=== PATIENT | female | born 1980 | race Caucasian/White ===

== ENCOUNTER 2017-02-07 13:54 | Emergency (ER) | payer OTHER ==
[~2017-02-07] VITALS: Ht 165.1 cm; Wt 75.1 kg
[~2017-02-07 13:54] MED LIST: ZOFRAN ODT4 MG PO
[2017-02-07 14:06] VITALS: BP 115/64; PULSE 77; TEMP 98.1
[2017-02-07] MEDS ORDERED: FLEXERIL5 MG PO (14:09)
[2017-02-07] MEDS ORDERED: LAMICTAL 25MG T25 MG PO (14:10)
[2017-02-07] MEDS ORDERED: AMOXICILLIN 50500 MG PO (15:34)
[2017-02-07] MEDS ORDERED: CORTISPORIN OTI10 ML OT (15:34)
== END 2017-02-07 15:55 | disposition home or self-care (01) ==
LOC: COL.ER 13:54
DX: H92.01 Otalgia, right ear (principal); R59.0 Localized enlarged lymph nodes

== ENCOUNTER 2017-07-11 10:39 | Emergency (ER) | payer OTHER ==
[~2017-07-11] VITALS: Ht 160 cm; Wt 76.4 kg
[~2017-07-11 10:39] MED LIST changes: +AMOXICILLIN 50500 MG PO; +CORTISPORIN OTI10 ML OT; +FLEXERIL5 MG PO; +LAMICTAL 25MG T25 MG PO
[2017-07-11 10:44] VITALS: BP 138/63
[2017-07-11 11:54] LABS: COLLECTION METHOD CLEAN CATCH
[2017-07-11 12:00] LABS: MUCOUS Present /lpf; PH 6 (5-8); URINE APPEARANCE Clear; URINE BACTERIA Rare /hpf; URINE BILIRUBIN Negative (NEGATIVE); URINE BLOOD Negative (NEGATIVE); URINE COLOR Amber; URINE GLUCOSE Negative (NEGATIVE); URINE KETONE Negative (NEGATIVE); URINE LEUKOCYTE ESTERASE Negative (NEGATIVE); URINE NITRATE Negative (NEGATIVE); URINE PROTEIN(semi-quant) Negative (NEGATIVE); URINE RBC 0-2 /hpf; URINE UROBILINOGEN Negative (NEGATIVE)
[2017-07-11 14:33] VITALS: PULSE 63; TEMP 98.5
== END 2017-07-11 14:18 | disposition home or self-care (01) ==
LOC: COL.ER 10:39
PROVIDERS: Nurse Practitioner
DX: O26.892 Other specified pregnancy related conditions, second trimester (principal); R10.2 Pelvic and perineal pain; Z3A.19 19 weeks gestation of pregnancy; Z98.890 Other specified postprocedural states; Z90.89 Acquired absence of other organs

== ENCOUNTER 2017-11-17 23:18 | Outpatient (CLI) | payer OTHER ==
[2017-11-17 23:45] VITALS: BP 116/65; PULSE 72; TEMP 97.8
[2017-11-18 03:20] VITALS: BP 116/65; PULSE 72; TEMP 97.8
== END 2017-11-18 00:43 | disposition home or self-care (01) ==
LOC: LDRO 23:18
DX: O99.89 Other specified diseases and conditions complicating pregnancy, childbirth and the puerperium (principal); R10.2 Pelvic and perineal pain; Z3A.38 38 weeks gestation of pregnancy

== ENCOUNTER 2017-11-29 08:21 | Inpatient (IN) | payer OTHER ==
[~2017-11-29] VITALS: Ht 165.1 cm; Wt 88.6 kg
[2017-11-29] VITALS (19 sets, daily range): BP systolic 100–144; BP diastolic 54–84; PULSE 48–100; TEMP 97.6–98.6
[2017-11-29] MEDS ORDERED: PRENATAL (11:06)
[2017-11-29 12:37] LABS: BASO % 0.4 % (0.0-2.0); EOS % 0.5 % (0-4.0); GRAN # 5.7 (1.4-6.5); GRAN % 74.1 % (42.2-75.2); HEMATOCRIT 35.5 % (37.0-47.0); HEMOGLOBIN 11.8 g/dl (12.5-16.0); LYMPH # 1.4 (1.2-3.4); LYMPH % 17.6 % (20.0-51.0); MEAN CELL VOLUME 90 fl (80.0-100.0); MEAN CORPUSCULAR HEMOGLOBIN 30 pg (27.0-31.0); MEAN CORPUSCULAR HGB CONC 33 g/dl (33.0-37.0); MEAN PLATELET VOLUME 10.4 fl (7.4-10.4); MONO # 0.5 (0.1-0.6); MONO % 6.5 % (1.7-9.3); PLATELET COUNT 181 K/mm3 (130-400); RED BLOOD COUNT 3.93 M/mm3 (4.10-5.30); REDCELL DISTRIBUTION WIDTH-CV 14.3 % (11.5-14.5)
[2017-11-30 00:40] VITALS: BP 116/69; PULSE 47; TEMP 98.1
[2017-11-30 04:45] VITALS: BP 122/67; PULSE 87; TEMP 98.1
[2017-11-30 07:42] VITALS: BP 113/80; PULSE 70; TEMP 97.8
[2017-11-30 16:04] VITALS: BP 114/66; PULSE 78; TEMP 97.8
[2017-11-30 19:45] VITALS: BP 112/58; PULSE 55; TEMP 97.8
[2017-12-01 04:00] VITALS: BP 114/72; PULSE 75; TEMP 98.5
[2017-12-01] MEDS ORDERED: PERCOCET 325 MG1 TA2 PO (08:41)
[2017-12-01] MEDS ORDERED: MOTRIN 800800 MG/TAB PO (08:41)
[2017-12-01 08:50] VITALS: BP 120/69; PULSE 73; TEMP 98.6
== END 2017-12-01 16:45 | disposition home or self-care (01) | DRG 766 ==
LOC: LDR 08:21 → OB 11:11
PROVIDERS: Obstetrics & Gynecology
PROC: 10D00Z1 Extraction of Products of Conception, Low, Open Approach (ICD-10-PCS; principal; 2017-11-29)
DX: O34.211 Maternal care for low transverse scar from previous cesarean delivery (principal); L91.0 Hypertrophic scar; Z3A.39 39 weeks gestation of pregnancy; Z37.0 Single live birth
CPT/HCPCS: J0690; J1885; J2175; J2405; J3010; J7120

== ENCOUNTER 2017-12-16 22:34 | Emergency (ER) | payer OTHER ==
[~2017-12-16] VITALS: Ht 165.1 cm; Wt 77.3 kg
[~2017-12-16 22:34] MED LIST changes: +MOTRIN 800800 MG/TAB PO; +PERCOCET 325 MG1 TA2 PO; +PRENATAL
[2017-12-16 22:46] VITALS: TEMP 98.4
[2017-12-17 00:58] LABS: BASO # 0.1 (0.0-0.2); BASO % 1.1 % (0.0-2.0); EOS # 0.2 (0.0-0.7); GRAN # 2.6 (1.4-6.5); GRAN % 45.8 % (42.2-75.2); HEMOGLOBIN 11.9 g/dl (12.5-16.0); LYMPH # 2.3 (1.2-3.4); LYMPH % 41.5 % (20.0-51.0); MEAN CELL VOLUME 90 fl (80.0-100.0); MEAN CORPUSCULAR HEMOGLOBIN 29 pg (27.0-31.0); MEAN CORPUSCULAR HGB CONC 33 g/dl (33.0-37.0); MEAN PLATELET VOLUME 9.1 fl (7.4-10.4); MONO # 0.5 (0.1-0.6); MONO % 8.2 % (1.7-9.3); PLATELET COUNT 316 K/mm3 (130-400); RED BLOOD COUNT 4.07 M/mm3 (4.10-5.30); REDCELL DISTRIBUTION WIDTH-CV 13.4 % (11.5-14.5)
[2017-12-17 00:59] LABS: HEMATOCRIT 36.6 % (37.0-47.0)
[2017-12-17 01:12] LABS: ALBUMIN 3.8 gm/dL (3.5-5.0); BILIRUBIN,TOTAL 0.4 mg/dL (0.0-1.0); CALCIUM 9.6 mg/dL (8.4-10.2); CREATININE, serum 0.6 mg/dL (0.52-1.25); TOTAL PROTEIN 7.2 gm/dL (6.4-8.2)
[2017-12-17 01:33] LABS: COLLECTION METHOD CATHETER
[2017-12-17 01:38] LABS: PH 6 (5-8); SQUAMOUS EPITHELIAL None Seen /hpf; URINE APPEARANCE Clear; URINE BACTERIA None Seen /hpf; URINE BILIRUBIN Negative (NEGATIVE); URINE BLOOD 2+ (NEGATIVE); URINE COLOR Straw; URINE GLUCOSE Negative (NEGATIVE); URINE KETONE Negative (NEGATIVE); URINE LEUKOCYTE ESTERASE Negative (NEGATIVE); URINE NITRATE Negative (NEGATIVE); URINE PROTEIN(semi-quant) Negative (NEGATIVE); URINE RBC 0-2 /hpf; URINE UROBILINOGEN Negative (NEGATIVE)
[2017-12-17 02:32] VITALS: BP 137/85; PULSE 52
== END 2017-12-17 02:33 | disposition home or self-care (01) ==
LOC: COL.ER 22:34
PROVIDERS: Emergency Medicine
DX: O72.2 Delayed and secondary postpartum hemorrhage (principal); Z98.890 Other specified postprocedural states

== ENCOUNTER → 2018-02-04 | Outpatient (REF) ==
[2018-02-04 08:08] LABS: BASO % 0.2 % (0.0-2.0); GRAN # 7.3 (1.4-6.5); GRAN % 73.3 % (42.2-75.2); HEMOGLOBIN 8.2 g/dl (12.5-16.0); LYMPH # 1.8 (1.2-3.4); LYMPH % 18.1 % (20.0-51.0); MEAN CELL VOLUME 92 fl (80.0-100.0); MEAN CORPUSCULAR HEMOGLOBIN 29 pg (27.0-31.0); MEAN PLATELET VOLUME 10.3 fl (7.4-10.4); MONO # 0.8 (0.1-0.6); MONO % 7.9 % (1.7-9.3); PLATELET COUNT 199 K/mm3 (130-400); RED BLOOD COUNT 2.81 M/mm3 (4.10-5.30); REDCELL DISTRIBUTION WIDTH-CV 14.2 % (11.5-14.5)
[2018-02-04 08:09] LABS: MEAN CORPUSCULAR HGB CONC 32 g/dl (33.0-37.0)
[2018-02-04 20:01] LABS: HEMATOCRIT 30.1 % (37.0-47.0); HEMOGLOBIN 9.8 g/dl (12.5-16.0)
== END ==
LOC: ZMSC 07:44
PROVIDERS: Obstetrics & Gynecology
DX: Z01.89 Encounter for other specified special examinations (principal)
CPT/HCPCS: P9016

== ENCOUNTER → 2018-02-05 | Outpatient (REF) ==
[2018-02-05 06:37] LABS: BASO % 0.6 % (0.0-2.0); EOS # 0.1 (0.0-0.7); EOS % 0.8 % (0-4.0); GRAN # 4.2 (1.4-6.5); GRAN % 58.2 % (42.2-75.2); HEMATOCRIT 28.1 % (37.0-47.0); HEMOGLOBIN 9.1 g/dl (12.5-16.0); LYMPH # 2.1 (1.2-3.4); LYMPH % 29.2 % (20.0-51.0); MEAN CELL VOLUME 90 fl (80.0-100.0); MEAN CORPUSCULAR HEMOGLOBIN 29 pg (27.0-31.0); MEAN CORPUSCULAR HGB CONC 32 g/dl (33.0-37.0); MEAN PLATELET VOLUME 10.1 fl (7.4-10.4); MONO # 0.8 (0.1-0.6); MONO % 10.4 % (1.7-9.3); PLATELET COUNT 148 K/mm3 (130-400); RED BLOOD COUNT 3.13 M/mm3 (4.10-5.30); REDCELL DISTRIBUTION WIDTH-CV 15.4 % (11.5-14.5)
[2018-02-05 11:56] LABS: HEMATOCRIT 29.8 % (37.0-47.0); HEMOGLOBIN 9.7 g/dl (12.5-16.0)
== END ==
LOC: ZMSC 06:27
PROVIDERS: Obstetrics & Gynecology
DX: Z01.89 Encounter for other specified special examinations (principal)

== ENCOUNTER → 2018-02-06 | Outpatient (REF) ==
[2018-02-06 10:13] LABS: HEMOGLOBIN 10.2 g/dl (12.5-16.0); MEAN CELL VOLUME 90 fl (80.0-100.0); MEAN CORPUSCULAR HEMOGLOBIN 29 pg (27.0-31.0); MEAN CORPUSCULAR HGB CONC 32 g/dl (33.0-37.0); MEAN PLATELET VOLUME 9.9 fl (7.4-10.4); PLATELET COUNT 173 K/mm3 (130-400); RED BLOOD COUNT 3.55 M/mm3 (4.10-5.30); REDCELL DISTRIBUTION WIDTH-CV 14.8 % (11.5-14.5)
[2018-02-06 10:15] LABS: HEMATOCRIT 31.9 % (37.0-47.0)
[2018-02-06 10:24] LABS: ALBUMIN 3.3 gm/dL (3.5-5.0); BILIRUBIN,TOTAL 0.6 mg/dL (0.0-1.0); CALCIUM 8.4 mg/dL (8.4-10.2); CREATININE, serum 0.44 mg/dL (0.52-1.25); POTASSIUM 3.4 mmol/L (3.4-5.0); TOTAL PROTEIN 6.1 gm/dL (6.4-8.2)
== END ==
LOC: ZMSC 10:00
PROVIDERS: Obstetrics & Gynecology
DX: Z01.89 Encounter for other specified special examinations (principal)

== ENCOUNTER 2018-02-09 22:47 | Emergency (ER) | payer OTHER ==
[~2018-02-09] VITALS: Ht 165.1 cm; Wt 77.3 kg
[2018-02-09 22:50] VITALS: TEMP 98.2
[2018-02-09 23:35] LABS: BASO % 0.6 % (0.0-2.0); EOS # 0.2 (0.0-0.7); EOS % 2.5 % (0-4.0); GRAN # 3.5 (1.4-6.5); GRAN % 53.8 % (42.2-75.2); HEMATOCRIT 33.6 % (37.0-47.0); HEMOGLOBIN 11.1 g/dl (12.5-16.0); LYMPH # 2.2 (1.2-3.4); LYMPH % 33.5 % (20.0-51.0); MEAN CELL VOLUME 88 fl (80.0-100.0); MEAN CORPUSCULAR HEMOGLOBIN 29 pg (27.0-31.0); MEAN CORPUSCULAR HGB CONC 33 g/dl (33.0-37.0); MEAN PLATELET VOLUME 9.3 fl (7.4-10.4); MONO # 0.6 (0.1-0.6); MONO % 8.8 % (1.7-9.3); PLATELET COUNT 306 K/mm3 (130-400); RED BLOOD COUNT 3.81 M/mm3 (4.10-5.30); REDCELL DISTRIBUTION WIDTH-CV 14.2 % (11.5-14.5)
[2018-02-09 23:40] LABS: ALBUMIN 3.8 gm/dL (3.5-5.0); BILIRUBIN,TOTAL 0.5 mg/dL (0.0-1.0); CREATININE, serum 0.51 mg/dL (0.52-1.25); POTASSIUM 3.6 mmol/L (3.4-5.0); TOTAL PROTEIN 6.7 gm/dL (6.4-8.2)
[2018-02-09 23:40] LABS: COLLECTION METHOD CLEAN CATCH
[2018-02-09 23:47] LABS: AMORPHOUS CRYSTAL Present /uL; MUCOUS Present /lpf; PH 6 (5-8); URINE APPEARANCE Hazy; URINE BACTERIA None Seen /hpf; URINE BILIRUBIN Negative (NEGATIVE); URINE BLOOD 2+ (NEGATIVE); URINE COLOR Yellow; URINE GLUCOSE Negative (NEGATIVE); URINE KETONE Negative (NEGATIVE); URINE LEUKOCYTE ESTERASE Negative (NEGATIVE); URINE NITRATE Negative (NEGATIVE); URINE PROTEIN(semi-quant) 1+ (NEGATIVE)
[2018-02-10] MEDS ORDERED: PHENERGAN 25 TA25 MG PO (01:21)
[2018-02-10] MEDS ORDERED: CEPHALEXIN500 M1 PO (01:21)
[2018-02-10] MEDS ORDERED: ZOFRAN 4MG T4 MG/TAB PO (01:21)
[2018-02-10 02:00] VITALS: BP 139/99; PULSE 47
== END 2018-02-10 02:00 | disposition home or self-care (01) ==
LOC: COL.ER 22:47
PROVIDERS: Emergency Medicine
DX: L76.32 Postprocedural hematoma of skin and subcutaneous tissue following other procedure (principal); R11.2 Nausea with vomiting, unspecified; Z90.710 Acquired absence of both cervix and uterus; Z98.890 Other specified postprocedural states; Y83.8 Other surgical procedures as the cause of abnormal reaction of the patient, or of later complication, without mention of misadventure at the time of the procedure
CPT/HCPCS: J2405; J7030; Q9967

== ENCOUNTER 2018-06-13 17:12 | Emergency (ER) | payer OTHER ==
[~2018-06-13] VITALS: Ht 165.1 cm; Wt 78.2 kg
[~2018-06-13 17:12] MED LIST changes: +CEPHALEXIN500 M1 PO; +PHENERGAN 25 TA25 MG PO; +ZOFRAN 4MG T4 MG/TAB PO
[2018-06-13 18:37] LABS: BASO % 0.3 % (0.0-2.0); EOS % 0.1 % (0-4.0); GRAN # 6.4 (1.4-6.5); GRAN % 87.4 % (42.2-75.2); HEMATOCRIT 43.9 % (37.0-47.0); HEMOGLOBIN 14.5 g/dl (12.5-16.0); LYMPH # 0.6 (1.2-3.4); LYMPH % 7.8 % (20.0-51.0); MEAN CELL VOLUME 89 fl (80.0-100.0); MEAN CORPUSCULAR HEMOGLOBIN 30 pg (27.0-31.0); MEAN CORPUSCULAR HGB CONC 33 g/dl (33.0-37.0); MEAN PLATELET VOLUME 9.8 fl (7.4-10.4); MONO # 0.3 (0.1-0.6); MONO % 4.1 % (1.7-9.3); PLATELET COUNT 222 K/mm3 (130-400); RED BLOOD COUNT 4.91 M/mm3 (4.10-5.30); REDCELL DISTRIBUTION WIDTH-CV 13.3 % (11.5-14.5)
[2018-06-13 18:50] LABS: ALBUMIN 4.6 gm/dL (3.5-5.0); CALCIUM 9.3 mg/dL (8.4-10.2); CREATININE, serum 0.6 mg/dL (0.52-1.25); POTASSIUM 3.7 mmol/L (3.4-5.0); TOTAL PROTEIN 7.6 gm/dL (6.4-8.2)
[2018-06-13 20:54] LABS: COLLECTION METHOD CLEAN CATCH
[2018-06-13 21:17] LABS: MUCOUS Present /lpf; PH 5 (5-8); SQUAMOUS EPITHELIAL 0-2 /hpf; URINE APPEARANCE Clear; URINE BACTERIA None Seen /hpf; URINE BILIRUBIN Negative (NEGATIVE); URINE BLOOD 2+ (NEGATIVE); URINE COLOR Yellow; URINE GLUCOSE Negative (NEGATIVE); URINE KETONE 1+ (NEGATIVE); URINE LEUKOCYTE ESTERASE Negative (NEGATIVE); URINE NITRATE Negative (NEGATIVE); URINE PROTEIN(semi-quant) Negative (NEGATIVE); URINE RBC 0-2 /hpf; URINE UROBILINOGEN Negative (NEGATIVE)
[2018-06-13] MEDS ORDERED: ZOFRAN ODT4 MG PO (21:24)
[2018-06-13 21:32] VITALS: BP 113/69; PULSE 90; TEMP 99.2
== END 2018-06-13 21:45 | disposition home or self-care (01) ==
LOC: COL.ER 17:12
PROVIDERS: Nurse Practitioner
DX: R11.10 Vomiting, unspecified (principal); Z90.89 Acquired absence of other organs; Z90.710 Acquired absence of both cervix and uterus; Z98.890 Other specified postprocedural states
CPT/HCPCS: J1885; J2405; J7030

== ENCOUNTER 2018-09-14 09:22 | Emergency (ER) | payer OTHER ==
[~2018-09-14] VITALS: Ht 165.1 cm; Wt 77.3 kg
[2018-09-14 09:48] VITALS: TEMP 98.3
[2018-09-14 12:25] VITALS: BP 115/75; PULSE 65
== END 2018-09-14 12:26 | disposition home or self-care (01) ==
LOC: COL.ER 09:22
DX: R51 Headache (principal); Z90.89 Acquired absence of other organs; Z98.890 Other specified postprocedural states; Z90.710 Acquired absence of both cervix and uterus
CPT/HCPCS: J1200; J1885; J2765; J7030

== ENCOUNTER 2019-01-01 11:56 | Emergency (ER) | payer OTHER ==
[~2019-01-01] VITALS: Ht 165.1 cm; Wt 73.2 kg
[2019-01-01] MEDS ORDERED: ZITHROMAX Z PA250 MG PO (14:25)
[2019-01-01 14:31] VITALS: BP 123/84; PULSE 79; TEMP 98.4
== END 2019-01-01 14:36 | disposition home or self-care (01) ==
LOC: COL.ER 11:56
DX: J20.9 Acute bronchitis, unspecified (principal); Z90.710 Acquired absence of both cervix and uterus; Z88.5 Allergy status to narcotic agent

== ENCOUNTER 2019-03-14 10:21 | Emergency (ER) | payer OTHER ==
[~2019-03-14] VITALS: Ht 165.1 cm; Wt 73.6 kg
[~2019-03-14 10:21] MED LIST changes: +ZITHROMAX Z PA250 MG PO
[2019-03-14 10:25] VITALS: BP 143/88; TEMP 98.2
[2019-03-14 11:14] LABS: BASO % 0.5 % (0.0-2.0); EOS % 0.7 % (0-4.0); GRAN # 3.2 (1.4-6.5); GRAN % 58.3 % (42.2-75.2); HEMATOCRIT 40.4 % (37.0-47.0); HEMOGLOBIN 13.4 g/dl (12.5-16.0); LYMPH # 1.7 (1.2-3.4); LYMPH % 30.5 % (20.0-51.0); MEAN CELL VOLUME 90 fl (80.0-100.0); MEAN CORPUSCULAR HEMOGLOBIN 30 pg (27.0-31.0); MEAN CORPUSCULAR HGB CONC 33 g/dl (33.0-37.0); MEAN PLATELET VOLUME 9.7 fl (7.4-10.4); MONO # 0.5 (0.1-0.6); MONO % 9.6 % (1.7-9.3); PLATELET COUNT 211 K/mm3 (130-400); RED BLOOD COUNT 4.49 M/mm3 (4.10-5.30); REDCELL DISTRIBUTION WIDTH-CV 13.2 % (11.5-14.5)
[2019-03-14 11:25] LABS: ALANINE AMINOTRANSFERASE 14 U/L (9-52); ALBUMIN 4.4 gm/dL (3.5-5.0); ALKALINE PHOSPHATASE 108 U/L (50-136); ANION GAP 10 mmol/L (7-16); AST,SGOT 21 U/L (15-37); BILIRUBIN,TOTAL 0.6 mg/dL (0.0-1.0); BLOOD UREA NITROGEN 15 mg/dL (7-17); CALCIUM 9.1 mg/dL (8.4-10.2); CARBON DIOXIDE 23 mmol/L (22-30); CHLORIDE 107 mmol/L (98-107); CREATININE, serum 0.47 (0.52-1.25); GLUCOSE 87 mg/dL (74-106); SODIUM 140 mmol/L (137-145); TOTAL PROTEIN 7.4 gm/dL (6.4-8.2)
[2019-03-14 11:36] LABS: TROPONIN-I < 0.012 ng/mL (0.000-0.035)
[2019-03-14 12:32] VITALS: PULSE 60
== END 2019-03-14 12:32 | disposition home or self-care (01) ==
LOC: COL.ER 10:21
PROVIDERS: Nurse Practitioner
DX: R07.89 Other chest pain (principal); F32.9 Major depressive disorder, single episode, unspecified; F41.9 Anxiety disorder, unspecified; Z90.89 Acquired absence of other organs; Z90.710 Acquired absence of both cervix and uterus; Z88.5 Allergy status to narcotic agent

== ENCOUNTER → 2019-08-22 | Outpatient (CLI) | payer OTHER | LOC: COL.RAD 08:48 | DX: R51 Headache (principal) | CPT/HCPCS: Q9967 ==

== ENCOUNTER 2019-09-11 09:43 | Emergency (ER) | payer OTHER ==
[~2019-09-11] VITALS: Ht 165.1 cm; Wt 50.0 kg
[2019-09-11 09:53] VITALS: BP 124/80; TEMP 98.1
[2019-09-11] MEDS ORDERED: ROXICODONE 55 MG/TAB PO (10:59)
[2019-09-11] MEDS ORDERED: FLEXERIL 1010 MG/TAB PO (11:03)
[2019-09-11] MEDS ORDERED: MEDROL 4MG DOSPA4 MG PO (11:03)
[2019-09-11] MEDS ORDERED: PERCOCET 325 MG1 TA2 PO (11:03)
[2019-09-11] MEDS ORDERED: LIDODERM 5% PATC1 EA TP (11:17)
[2019-09-11 11:58] VITALS: PULSE 78
== END 2019-09-11 12:00 | disposition home or self-care (01) ==
LOC: COL.ER 09:43
DX: M54.17 Radiculopathy, lumbosacral region (principal); Z95.2 Presence of prosthetic heart valve; Z88.5 Allergy status to narcotic agent; Z98.890 Other specified postprocedural states
CPT/HCPCS: J1885

== ENCOUNTER → 2019-10-18 | Outpatient (CLI) | payer OTHER ==
[~2019-10-18] MED LIST changes: +FLEXERIL 1010 MG/TAB PO; +LIDODERM 5% PATC1 EA TP; +MEDROL 4MG DOSPA4 MG PO; +ROXICODONE 55 MG/TAB PO
== END ==
LOC: COL.RAD 10:05
DX: G93.89 Other specified disorders of brain (principal)
CPT/HCPCS: A9585

== ENCOUNTER → 2019-10-30 | Outpatient (CLI) | payer OTHER ==
[~2019-10-30] VITALS: Ht 165.1 cm; Wt 80.6 kg
[2019-10-30 09:43] VITALS: BP 131/87; PULSE 69
[2019-10-30 10:30] VITALS: BP 119/84; PULSE 44
[2019-10-30 10:45] VITALS: BP 133/81; PULSE 63
[2019-10-30 11:00] VITALS: BP 141/100; PULSE 70
[2019-10-30 11:15] VITALS: BP 129/87; PULSE 60
--- NOTE | 2019-10-30 11:20 | NUR ---
WENT OVER DC INFORMATION, VERBALLY AND WRITTEN INFO GIVEN. COFFEE AND WATER GIVEN. PT STATES SHE HAS HAD A HEADACHE FOR 15 MONTHS. SITE IS [facility].
[2019-10-30 11:30] VITALS: BP 132/89; PULSE 63
[2019-10-30 11:31] LABS: GLUCOSE,CSF 50 mg/dL (40-70); TOTAL PROTEIN,CSF 17 mg/dL (15-45)
--- NOTE | 2019-10-30 11:45 | NUR ---
FAMILY PICKS UP PT AT 1145.
[2019-10-30 12:25] LABS: CSF APPEARANCE CLEAR; CSF COLOR COLORLESS; CSF MONONUCLEAR 0 % (70-100); CSF POLYMORPHONUCLEAR 0 % (0-6); CSF RBC 1 /mm3 (0-0)
== END ==
LOC: COL.RAD 09:00
PROVIDERS: Psychiatry & Neurology Neurology
DX: G37.8 Other specified demyelinating diseases of central nervous system (principal)

== ENCOUNTER → 2019-11-02 | Outpatient (CLI) | payer OTHER | LOC: COL.RAD 09:00 | DX: M48.061 Spinal stenosis, lumbar region without neurogenic claudication (principal); M51.16 Intervertebral disc disorders with radiculopathy, lumbar region; M47.26 Other spondylosis with radiculopathy, lumbar region; R22.1 Localized swelling, mass and lump, neck | CPT/HCPCS: Q9967 ==

== ENCOUNTER → 2019-11-06 | Outpatient (CLI) | payer OTHER | LOC: COL.LAB 13:01 | DX: G43.709 Chronic migraine without aura, not intractable, without status migrainosus (principal); Z79.899 Other long term (current) drug therapy ==